=== PATIENT | male | born 1945 | race Two or more races ===

== ENCOUNTER → 2025-04-30 09:45 | Outpatient (REF) | payer MEDICARE, SELFPAY | LOC: HWRCS 09:45 | PROVIDERS: ATTENDING PHYSICIAN Internal Medicine Cardiovascular Disease | DX: E11.9 Type 2 diabetes mellitus without complications (principal); R94.31 Abnormal electrocardiogram [ECG] [EKG] | CPT/HCPCS: 93306 ==

== ENCOUNTER → 2025-05-27 07:03 | Outpatient (REF) | payer MEDICARE, OTHER, SELFPAY | LOC: RCS 07:03 | PROVIDERS: ATTENDING PHYSICIAN Internal Medicine Cardiovascular Disease; FAMILY PHYSICIAN Internal Medicine | DX: E78.5 Hyperlipidemia, unspecified (principal); E11.9 Type 2 diabetes mellitus without complications; R94.31 Abnormal electrocardiogram [ECG] [EKG] | CPT/HCPCS: 78452; 93017; A9500; J2785 ==

== ENCOUNTER → 2025-07-13 11:47 | Outpatient (REF) | payer MEDICARE, OTHER, SELFPAY ==
[2025-07-13 16:22] LABS: Hematocrit 38.0 % (39.0-52.0); Hemoglobin 12.3 g/dL (13.0-18.0); Mean Corp Hgb Conc. 32.4 g/dL (33.0-37.0); Mean Corpuscular Volume 93.8 fL (80.0-94.0); Nucleated Red Blood Cells % 0 % (-); Platelet Count 239 10^3/uL (130-400); Red Cell Dist. Width 14.5 % (11.5-14.5)
[2025-07-13 16:28] LABS: ALT (SGPT) 32 U/L (0-50); AST (SGOT) 28 U/L (17-59); Albumin 3.9 g/dl (3.5-5.0); Alkaline Phosphatase 89 U/L (38-126); Blood Urea Nitrogen 28 mg/dl (9-20); Calcium 9.5 mg/dl (8.4-10.2); Carbon Dioxide 24 mmol/L (22-30); Chloride 107 mmol/L (98-107); Glucose 105 mg/dl (70-99); Potassium 5.4 mmol/L (3.5-5.1); Sodium 137 mmol/L (135-145); Total Protein 6.8 g/dl (6.3-8.2); eGFR 51.45
== END ==
LOC: HWLAB 11:47
PROVIDERS: ATTENDING PHYSICIAN Student in an Organized Health Care Education/Training Program; FAMILY PHYSICIAN Internal Medicine
DX: I25.10 Atherosclerotic heart disease of native coronary artery without angina pectoris (principal)
CPT/HCPCS: 36415; 80053; 85025

== ENCOUNTER 2025-07-21 08:50 | Day surgery (SDC) | payer MEDICARE, OTHER, SELFPAY ==
[2025-07-21] VITALS (15 sets, daily range): BP systolic 124–155; BP diastolic 61–88; BMI 43.0
[2025-07-21] MEDS: PLAVIX 600 MG PO (10:26)
[2025-07-21 11:22] LABS: Glucose - Point of Care 81 mg/dl (70-99)
[2025-07-21 12:52] LABS: ACT-LR - POC 311 Seconds (116-155)
[2025-07-21 15:45] LABS: ACT-LR - POC 244 Seconds (116-155)
--- NOTE | 2025-07-21 16:09 | W.PN.UPDATE ---
Update Note
Progress Note Update
80 yo male s/p PCI LM (same day). He denies cp, sob, sherry diet, voiding, amb w/o dizziness, EKG SR, no ST changes, R rad site TR band. He will be on DAPT ASA/Plavix. Cardiac rehab c/s. He will f/u Dr. Monet in 2-4 weeks. He is for d/c home after
630p if site stable.
--- NOTE | 2025-07-21 16:46 | ITS.CL.PN ---
Telephonic Nurse Case Manager - Procedure Note
Procedure
Procedure Note:
CARDIAC CATHETERIZATION REPORT
Date of Procedure: 07/21/2025
Referring: Dr. Adiel Monet MD
Indication: severe ostial left main stenosis, patient deemed high risk for CABG and after heart team discussion referred for percutaneous revascularization
PROCEDURE(S)
1. left heart catheterization
2. IVUS left main
3. PCI with RASHEEDA to left main
ACCESS: 6F right radial artery (closure: radial band)
CATHETERS
1. 6F pigtail
2. 6F EBU3.5 guide catheter
MODERATE SEDATION: 45 minutes of moderate sedation was utilized. An independent medical writer was present to assist with and help manage the patient's level of consciousness and physiologic status.
HEMODYNAMIC DATA
LV 130/12 (EDP 24) mmHg
AO 137/71 (mean 90) mmHg
CORONARY ANGIOGRAPHY
Dominance: Right
LM: Large vessel with eccentric 50 to 60% ostial narrowing best seen in cranial views
LAD: Large vessel giving rise to a moderate caliber diagonal branch and wrapping around the apex. There is nonobstructive disease.
LCx: Large vessel giving rise to a small OM1, large OM2, and moderate caliber branching OM3. There is mild nonobstructive disease.
RCA: Not injected
Coronary intervention
Heparin was given to achieve ACT greater than 300. The left main was engaged with a EBU 3.5 guide and initial lesion preparation was performed with a 2.5 mm semicompliant balloon followed by IVUS demonstrating non-concentric calcification at the
ostial left main stenosis and a reference vessel diameter of 5.0 to 5.5 mm. Additional lesion preparation was performed with a 4.5 mm NC balloon which expanded fully. The vessel was stented with a 4.5 x 12 mm [place] frontier RASHEEDA carefully positioned
in cranial and caudal views to ensure optimal ostial positioning and no extension into the LAD, respectively. Post dilation was performed with a 5.0 mm NC balloon. IVUS was performed demonstrating distal positioning of the stent at the radhika and
proximal positioning of the stent ostially. There was mild undersizing of the stent which was further postdilated with a 5.5 mm NC balloon. Final angiographic result was outstanding. The wire and guide were removed and a TR band placed.
CONCLUSIONS
1. Moderately elevated LV filling pressure and no aortic stenosis
2. Obstructive coronary artery disease with ostial left main stenosis as described
3. Successful IVUS guided PCI with RASHEEDA to left main (4.5 x 12 mm [place] frontier drug-eluting stent postdilated to high-pressure with a 5.5 mm NC balloon)
RECOMMENDATIONS
1. Aggressive secondary prevention of coronary artery disease
2. DAPT with aspirin and Plavix for at least 6 months
Copy to: Dr. Adiel Monet MD (stagecraft professor); [ ] (PCP)
Signed: Magnus Lake MD, PhD
== END 2025-07-21 18:30 | disposition home or self-care (01) ==
LOC: CATH 08:50
PROVIDERS: ATTENDING PHYSICIAN Student in an Organized Health Care Education/Training Program; FAMILY PHYSICIAN Internal Medicine; OTHER PHYSICIAN Internal Medicine Cardiovascular Disease
DX: I25.10 Atherosclerotic heart disease of native coronary artery without angina pectoris (principal); I44.0 Atrioventricular block, first degree; I45.4 Nonspecific intraventricular block; E11.9 Type 2 diabetes mellitus without complications; I10 Essential (primary) hypertension; Z79.82 Long term (current) use of aspirin; Z79.02 Long term (current) use of antithrombotics/antiplatelets
CPT/HCPCS: 99152; 99153; C1753; 82962; 85347; 92978; 93005; 93458; C1725; C1874; C1894; C9600; Q9967